=== PATIENT | female | born 1965 | race Caucasian/White ===

== ENCOUNTER 2019-08-04 16:06 | Inpatient (IN) | payer MEDICARE, MEDICAID ==
[~2019-08-04] VITALS: Ht 157.5 cm; Wt 56.7 kg
--- NOTE | 2019-08-04 16:10 | NUR ---
PT [id number] [facility] FOR DIFFUSE ABDOMINAL PAIN, CONSTIPATION X 2 DAYS. PT AAOX4, VSS, NO ACUTE DISTRESS NOPTED. PT CONNECTED TO THE MONITOR AND POX
[2019-08-04] MEDS ORDERED: ACETAMINOPHEN ES 500 MG TABLET ONE (16:47)
[2019-08-04] MEDS ORDERED: predniSONE 20 MG TABLET ONE (16:48)
[2019-08-04] MEDS ORDERED: ALBUTEROL FS 2.5 MG/3 ML VIAL.NEB NEB ONE (17:00)
[2019-08-04] MEDS ORDERED: predniSONE 20 MG TABLET PO ONE (17:00)
[2019-08-04] MEDS ORDERED: IV NS 0.9% 1,000 ML BAG IV ONE (17:00)
[2019-08-04] MEDS ORDERED: IPRATROPIUM NEB FS 0.5 MG/2.5 ML AMPUL.NEB NEB ONE (17:00)
[2019-08-04] MEDS ORDERED: ACETAMINOPHEN ES 500 MG TABLET PO ONE (17:00)
[2019-08-04] MEDS ORDERED: MINERAL OIL 133 ML (PYXIS) 1 EA ENEMA RC ONE ×2 (17:04→17:30)
[2019-08-04 17:06] LABS: BASOPHILS # (AUTO) 0.1 /CMM (0.0-0.2); BASOPHILS % (AUTO) 0.6 % (0.0-2.0); EOSINOPHILS % (AUTO) 2.6 % (0.0-6.0); HEMATOCRIT 30 % (33-45); HEMOGLOBIN 9.6 g/dL (11.5-14.8); LYMPHOCYTES # (AUTO) 1.6 /CMM (0.8-4.8); LYMPHOCYTES % (AUTO) 17.5 % (20.0-44.0); MEAN CORPUSCULAR HGB CONC 32 g/dl (31.0-36.0); MEAN CORPUSCULAR VOLUME 87 fL (82-100); MONOCYTES # (AUTO) 0.6 /CMM (0.1-1.30); MONOCYTES % (AUTO) 6.6 % (2.0-12.0); NEUTROPHILS # (AUTO) 6.5 /CMM (1.8-8.9); NEUTROPHILS % (AUTO) 72.7 % (43.0-81.0); PLATELET COUNT (AUTO) 412 /CMM (150-450); RED BLOOD CELL COUNT(AUTO) 3.43 MIL/uL (4.0-5.2)
[2019-08-04] MEDS ORDERED: ALBU18HF2 IH (17:08)
[2019-08-04] MEDS ORDERED: LEVO125T8 PO (17:08)
[2019-08-04] MEDS ORDERED: BISA10SU11 RC (17:08)
[2019-08-04] MEDS ORDERED: SENN-261 PO (17:08)
[2019-08-04] MEDS ORDERED: MULT-447 PO (17:08)
[2019-08-04] MEDS ORDERED: DOCU-141 PO (17:08)
[2019-08-04] MEDS ORDERED: TRAZ-257 PO (17:08)
[2019-08-04] MEDS ORDERED: ARIP30TA3 PO (17:08)
[2019-08-04] MEDS ORDERED: TRAM50TA2 PO (17:08)
[2019-08-04] MEDS ORDERED: MELA3TAB41 PO (17:08)
[2019-08-04] MEDS ORDERED: IPRATROPIUM NEB FS 0.5 MG/2.5 ML AMPUL.NEB ONE (17:10)
[2019-08-04] MEDS ORDERED: ALBUTEROL FS 2.5 MG/3 ML VIAL.NEB ONE (17:10)
[2019-08-04] MEDS ORDERED: ACET-2605 PO (17:12)
[2019-08-04] MEDS ORDERED: NA P133E RC (17:12)
[2019-08-04] MEDS ORDERED: MAGN400O6 PO (17:12)
[2019-08-04] MEDS ORDERED: ACET-868 PO (17:12)
[2019-08-04] MEDS ORDERED: POLY15DR40 EACHEYE (17:12)
[2019-08-04 17:15] LABS: CALCIUM, SERUM 9.6 mg/dL (8.5-10.1); CREATININE 5.2 mg/dL (0.6-1.3); POTASSIUM 4.8 mmol/L (3.5-5.1)
--- NOTE | 2019-08-04 17:16 | NUR ---
PT REFUSING VITAL SIGNS
[2019-08-04 17:21] LABS: ALBUMIN 3.4 g/dL (3.4-5.0); BILIRUBIN,DIRECT 0.1 mg/dL (0.0-0.2); BILIRUBIN,TOTAL 0.4 mg/dL (0.2-1.0)
[2019-08-04 17:33] LABS: APPEARANCE,URINE Clear (CLEAR); BILIRUBIN,URINE Negative (NEGATIVE); BLOOD, URINE Trace-intact Ery/uL (NEGATIVE); COLOR,URINE Yellow (YELLOW); KETONES,URINE Negative (NEGATIVE); LEUKOCYTE ESTERASE ,URINE Negative (NEGATIVE); NITRITE, URINE Negative (NEGATIVE); PROTEIN,URINE Negative (NEGATIVE); UGLUCOSE Negative (NEGATIVE); UROBILINOGEN,URINE 0.2 EU/dL (0.2)
[2019-08-04 17:51] LABS: BACTERIA,URINE 1+ /HPF (None Seen); MUCUS,URINE Few /LPF (None Seen); RBC,URINE 0-2 /HPF (0-2); SQUAMOUS EPITHELIAL CELL,UR Many /HPF (None Seen); WBC,URINE NONE SEEN /HPF (0-3)
--- NOTE | 2019-08-04 17:56 | NUR ---
ENEMA TO BE DONE AFTER BREATHING TREATMENT PER PT
--- NOTE | 2019-08-04 18:27 | NUR ---
CALLED CLAUDIA ANDERSON [phone] SPOKE WITH [facility] LAST LABS FROM [facility] ON 06-29-19 CREATININE OF 1.05
--- NOTE | 2019-08-04 20:46 | NUR ---
ms 208-2
--- NOTE | 2019-08-04 21:51 | NUR ---
REPORT GIVEN TO SHAYY FRITZ
[2019-08-04] MEDS ORDERED: ONDANSETRON HCL/PF 4 MG/2 ML VIAL IVP PRN (22:00)
[2019-08-04] MEDS ORDERED: MAGNESIUM HYDROXIDE 30 ML UDC PO PRN (22:00)
[2019-08-04] MEDS ORDERED: MAG HYDROX/AL HYDROX/SIMETH 30 ML UDC PO PRN (22:00)
[2019-08-04] MEDS ORDERED: ACETAMINOPHEN 325 MG TABLET PO PRN (22:00)
[2019-08-04] MEDS ORDERED: Z GUARD REMEDY 2 OZ OINT TP PRN (22:00)
--- NOTE | 2019-08-04 22:30 | NUR ---
RN OPENING NOTES RECEIVED REPORT FROM LABORER LIVESTOCK JAMES. Pt ARRIVED TO THE FLOOR VIA GURNEY. NO S/S OF ACUTE DISTRESS OR SEVERE SOB NOTED. Pt IS A/OX3, VERBAL, ABLE TO MAKE NEEDS KNOWN. Pt IS ALERT TO SELF, KNOWS , KNOWS CURRENT YEAR, WAS FORGETFUL AT FIRST OF THE CURRENT MONTH, THOUGHT IT WAS JUNE BUT CORRECTED HERSELF WITHOUT HELP AND SAID IT WAS JULY 2019. Pt KNEW SHE WAS IN A HOSPITAL BUT WAS UNCERTAIN OF THE NAME OF THE HOSPITAL. Pt IS C/O 10/10 PAIN AROUND LEFT NEC & SHOULDER. WILL ADMINISTER PAIN MEDS PER MED ORDER. IV ACCESS ON L HAND #20G. SAFETY MEASURES IN PLACE. BED LOW, LOCKED, HOB ELEVATED, SIDE RAILS UP, CALL LIGHT AND BEDSIDE TABLE WITHIN REACH. Pt IS ON TELE MONITOR, WITH READING OF ST 117. WILL CONTINUE TO MONITOR Pt's CONDITION AND SAFETY THROUGHOUT THE NIGHT.
[2019-08-04] MEDS: HYDROCODONE/APAP 5/325MG 1 EACH TABLET PO PRN (22:58)
[2019-08-04] MEDS ORDERED: POLYVINYL ALCOHOL 15 ML BOTTLE EACHEYE PRN (23:30)
[2019-08-04] MEDS ORDERED: TRAMADOL HCL 50 MG TABLET PO PRN (23:30)
[2019-08-04] MEDS ORDERED: TRAZODONE 50 MG TABLET PO PRN (23:30)
[2019-08-05] VITALS: BP 160/105
[2019-08-05] MEDS: POLYETHYLENE GLYCOL 3350 17 GM POWD.PACK PO SCH ×2 (00:50→21:13)
[2019-08-05] MEDS: SENNOSIDES 8.6 MG TABLET PO SCH ×2 (00:52→21:13)
[2019-08-05] MEDS: LEVOFLOXACIN (250MG) 250 MG TABLET PO SCH ×2 (00:52→22:37)
[2019-08-05] MEDS: DOCUSATE SODIUM 100 MG CAPSULE PO SCH ×4 (00:52→16:29)
[2019-08-05] MEDS: IPRATROPIUM NEB FS 0.5 MG/2.5 ML AMPUL.NEB NEB PRN ×3 (00:53→13:54)
[2019-08-05] MEDS: ALBUTEROL HALF STRENGTH 1.25 MG/3 ML VIAL.NEB NEB PRN ×3 (00:53→13:54)
[2019-08-05] MEDS: SORBITOL SOLUTION 30 ML PO SCH ×2 (00:53→09:22)
[2019-08-05] MEDS: METOPROLOL TARTRATE 25 MG TABLET PO SCH ×3 (00:54→21:13)
[2019-08-05] MEDS: HEPARIN SODIUM, PORCINE 5000 UNITS/1 ML VIAL SQ SCH ×3 (01:05→21:13)
[2019-08-05] MEDS: IV NS 0.9% 1,000 ML IV PRN (01:06)
[2019-08-05] MEDS: ZOLPIDEM TARTRATE 5 MG TABLET PO PRN ×2 (01:22→21:13)
[2019-08-05 04:30] VITALS: BP 163/99
[2019-08-05] MEDS: HYDROCODONE/APAP 5/325MG 1 EACH TABLET PO PRN ×2 (05:06→18:04)
--- NOTE | 2019-08-05 06:45 | NUR ---
RN NOTES Pt REFUSED AM BLOOD DRAWS. SAID TO COME BACK AT 11AM. WILL ENDORSE TO DAYSYAZMIN RN.
--- NOTE | 2019-08-05 07:30 | NUR ---
RN CLOSING NOTES NO SIGNIFICANT CHANGES IN Pt's CONDITION. Pt REMAINED STABLE DURING THE NIGHT PER BASELINE. NO S/S OF ACUTE DISTRESS OR SEVERE SOB NOTED. ALL NEEDS MET AND ATTENDED. SAFETY MEASURES IN PLACE. BED ALARM ON. Pt IS RESTING COMFORTABLY IN BED. TELE READING SR 88. WILL ENDORSE TO DAYSHIFT RN FOR Pt's NUNO.
--- NOTE | 2019-08-05 07:59 | NUR ---
ONLINE COMMUNITY MANAGER OPENING NOTES RECEIVED PATIENT IN BED, AWAKE, A/O X3. PATIENT ON ROOM AIR BREATHING EVENLY WITH NO SIGNS OF SOB OR DISTRESS AT THIS TIME. PATIENT MAKES NEEDS KNOWN. DENIES ANY PAIN AT THIS MOMENT. L HAND SL GAUGE # 20 PRESENT, INTACT AND RUNNING NS @ 75ML/HR. NO SIGNS OF INFILTRATION OR REDNESS AT THE SITE. PATIENT ON EXTERNAL CARDIAC MONITORING WITH A READING OF NORMAL SR IN THE 80S. SAFETY PRECAUTIONS IN PLACE: BED IN LOW POSITION AND LOCKED, RAILS UP X 2, CALL LIGHT WITHIN REACH. WILL CONTINUE TO MONITOR PATIENT.
--- NOTE | 2019-08-05 09:14 | NUR ---
WOUND CARE CONSULT: PT SLEEPING SOUNDLY AT THIS TIME. PER NURSING STAFF, PT WAS UNCOOPERATIVE EARLIER. WILL SEE PT PT CONDITION PERMITS. RN TO DISCUSS SKIN CONDITION WITH MD. DISCUSSED SKIN PROTECTION. CURRENT SHOSHANA SCORE IS 15.
[2019-08-05] MEDS: LEVOTHYROXINE SODIUM 125 MCG TABLET PO SCH (09:17)
[2019-08-05] MEDS: MULTIVITAMINS,THERAGRAN 1 UDTAB TABLET PO SCH (09:18)
[2019-08-05] MEDS: ARIPIPRAZOLE 5 MG TABLET PO SCH (09:22)
--- NOTE | 2019-08-05 10:30 | NUR ---
RN MS NOTES PT SEEN BY DR. RAMOS, ORDERED SKIN SCRAPE TO R/O SCABIES, AWARE THAT PT IS REFUSING AM BLOOD DRAWS AND VITAL SIGNS, ALSO REFUSING IV FLUIDS, MD ALSO ORDERED PSYCH CONSULT, NOTED AND CARRIED OUT.
[2019-08-05 12:40] LABS: CREATININE, URINE 46.1 MG/DL (30.0-125.0)
--- NOTE | 2019-08-05 12:40 | NUR ---
MS RN NOTES PATIENT HAS $100 CHECK IN HER POSSESSION. TOLD SHE DOES NOT WANT TO GIVE IT TO THE SAFE FOR SAFE STORAGE. SHE DOES NOT BELIEVE ANYONE AND WILL KEEP IT WITH HER. SHE WANT TO SPEAK ONLY WITH CASE-COMPENSATION DIRECTOR.
[2019-08-05 12:48] LABS: APPEARANCE,URINE CLEAR (CLEAR); BILIRUBIN,URINE NEGATIVE (NEGATIVE); BLOOD, URINE MODERATE Ery/uL (NEGATIVE); COLOR,URINE YELLOW (YELLOW); KETONES,URINE NEGATIVE (NEGATIVE); LEUKOCYTE ESTERASE ,URINE TRACE (NEGATIVE); NITRITE, URINE NEGATIVE (NEGATIVE); PH,URINE 6.5 (5.0-8.0); PROTEIN,URINE 100 mg/dl (NEGATIVE); UGLUCOSE NEGATIVE (NEGATIVE); UROBILINOGEN,URINE 0.2 EU/dL (0.2)
[2019-08-05 14:18] LABS: RBC,URINE 51-80 /HPF (0-2)
[2019-08-05 14:19] LABS: BACTERIA,URINE 1+ /HPF (None Seen); SQUAMOUS EPITHELIAL CELL,UR Few /HPF (None Seen)
[2019-08-05 14:35] LABS: EOSINOPHIL,URINE None Seen
[2019-08-05] MEDS: DIVALPROEX SODIUM 125 MG CAP.SPRINK PO SCH (16:29)
[2019-08-05 17:45] VITALS: BP 158/99
--- NOTE | 2019-08-05 18:18 | NUR ---
MS RN NOTES PATIENT SCHEDULED FOR SKIN SCRAPING TODAY TO R/O SCABIES. MULTIPLE ATTEMPTS WERE MADE TO FIND A CERTIFIED PERSON TO PERFORM THE PROCEDURE BUT THEY WERE NOT SUCCESSFUL. NO ONE WAS AVAILABLE AND THE PROCEDURE HAS NOT BEEN DONE. CHARGE NURSE AWARE. KING (ID NURSE) NOTIFIED.
--- NOTE | 2019-08-05 18:40 | NUR ---
Spoke with SNF nurse Sera- confirmed patient is a resident of [facility] [phone] at [facility] . Patient requires max assist with adl's. Uses wheelchair for mobility most of the time. Her pcp is Dr. Ami Garcia. Current dc plan is to return to SNF with bed on hold x7 days. Addendum: 08/05/19 at 1841 by TODD VIERA RN Amended: Links added.
--- NOTE | 2019-08-05 18:47 | NUR ---
MS RN CLOSING NOTES PATIENT RESTING IN BED A/O x3. ABLE TO MAKE NEEDS KNOWN. PATIENT ON ROOM AIR, BREATHING EVEN AND UNLABORED WITH NO SIGNS OF DISTRESS. NO SOB PRESENT AT THIS TIME. THROUGHOUT THE DAY PATIENT ANGRY WITH MOOD SWINGS. PATIENT REFUSED CERTAIN MEDICATIONS, LABS AND PROCEDURES SUCH SKIN SCRAPING TO R/O SCABIES. L HAND #20 SL INTACT AND PATENT WITH NO SIGNS OF INFILTRATION. ESTES CATHETER IN PLACE, INTACT AND DRAINING CLEAR, YELLOW URINE. ALL NEEDS WERE ATTENDED TO. SAFETY PRECAUTIONS IN PLACE; BED IN LOW POSITION AND LOCKED, RAILS UP X 2, CALL LIGHT WITHIN REACH. WILL ENDORSE TO COVERING MACHINE OPERATOR HELPER NURSE.
--- NOTE | 2019-08-05 19:05 | NUR ---
MS RN NOTE RECEIVED PT IN STABLE CONDITION A/O X3, CURRENTLY IN ROOM. NO SIGNS OF SOB OR DISTRESS, NO C/O PAIN OR N/V. NOTED TO BE ON ISOLATION PRECAUTIONS, PRECAUTIONS FOLLOWED. ESTES IN PLACE, WITH ADEQUATE URINE DRAINING. L HAND #20, INTACT AND IN PLACE. ALL CURRENT NEEDS ATTENDED TO. BED LOW, LOCKED, UPPER RAILS UP, AND CALL LIGHT WITHIN REACH. WILL CONT. TO MONITOR.
[2019-08-05 20:00] VITALS: BP 148/101
[2019-08-06] MEDS: HYDROCODONE/APAP 5/325MG 1 EACH TABLET PO PRN ×4 (01:45→20:12)
--- NOTE | 2019-08-06 06:15 | NUR ---
MS RN NOTE PT REMAINS IN STABLE CONDITION A/O X3, CURRENTLY IN ROOM RESTING. NO SIGNS OF SOB OR DISTRESS, NO C/O PAIN OR N/V. NOTED TO BE ON ISOLATION PRECAUTIONS, PRECAUTIONS FOLLOWED. ESTES IN PLACE, WITH ADEQUATE URINE DRAINING. L HAND #20, INTACT AND IN PLACE, REFUSING IV HYDRATION. ALL CURRENT NEEDS ATTENDED TO. BED LOW, LOCKED, UPPER RAILS UP, AND CALL LIGHT WITHIN REACH. WILL CONT. TO MONITOR AND ENDORSE TO NEXT SHIFT FOR NUNO.
--- NOTE | 2019-08-06 07:20 | NUR ---
MS RN NOTE PT REFUSED AM LABS TO BE DRAWN, RISKS AND BENEFITS MADE AWARE, WITH VERBALIZATION OF UNDERSTANDING.
[2019-08-06 08:00] VITALS: BP_SYST 157; BP_SYST 159; BP_DIAS 108; BP_DIAS 92
[2019-08-06] MEDS: SORBITOL SOLUTION 30 ML PO SCH (09:00)
[2019-08-06] MEDS ORDERED: PERMETHRIN 5% CRM 60 GM TUBE TP ONE (09:00)
[2019-08-06] MEDS: LEVOTHYROXINE SODIUM 125 MCG TABLET PO SCH (09:05)
[2019-08-06] MEDS: DIVALPROEX SODIUM 125 MG CAP.SPRINK PO SCH ×3 (09:05→16:02)
[2019-08-06] MEDS: DOCUSATE SODIUM 100 MG CAPSULE PO SCH ×3 (09:05→16:03)
[2019-08-06] MEDS: ARIPIPRAZOLE 5 MG TABLET PO SCH (09:05)
[2019-08-06] MEDS: METOPROLOL TARTRATE 25 MG TABLET PO SCH ×2 (09:06→20:15)
[2019-08-06] MEDS: HEPARIN SODIUM, PORCINE 5000 UNITS/1 ML VIAL SQ SCH ×2 (09:08→21:32)
[2019-08-06] MEDS: MULTIVITAMINS,THERAGRAN 1 UDTAB TABLET PO SCH (09:09)
[2019-08-06] MEDS: IPRATROPIUM NEB FS 0.5 MG/2.5 ML AMPUL.NEB NEB PRN (09:50)
[2019-08-06] MEDS: ALBUTEROL HALF STRENGTH 1.25 MG/3 ML VIAL.NEB NEB PRN (09:50)
[2019-08-06] MEDS ORDERED: GUAIFENESIN 300 MG/15 ML UDC PO PRN (11:00)
--- NOTE | 2019-08-06 11:00 | NUR ---
MS RN NOTES-- RECEIVED ORDERS PER DR. BOSS FOR PERMETHRIN. PER DR. RAMOS, TO APPLY PERMETHRIN AFTER SKIN SCRAPE. CHARGE NURSE MADE AWARE.
[2019-08-06 12:02] LABS: BASOPHILS # (AUTO) 0.1 /CMM (0.0-0.2); BASOPHILS % (AUTO) 0.8 % (0.0-2.0); EOSINOPHILS % (AUTO) 2.5 % (0.0-6.0); HEMATOCRIT 28 % (33-45); HEMOGLOBIN 9.4 g/dL (11.5-14.8); LYMPHOCYTES # (AUTO) 2.4 /CMM (0.8-4.8); LYMPHOCYTES % (AUTO) 22.9 % (20.0-44.0); MEAN CORPUSCULAR HGB CONC 33 g/dl (31.0-36.0); MEAN CORPUSCULAR VOLUME 87 fL (82-100); MONOCYTES # (AUTO) 0.7 /CMM (0.1-1.30); MONOCYTES % (AUTO) 7.1 % (2.0-12.0); NEUTROPHILS # (AUTO) 6.9 /CMM (1.8-8.9); NEUTROPHILS % (AUTO) 66.7 % (43.0-81.0); PLATELET COUNT (AUTO) 403 /CMM (150-450); RED BLOOD CELL COUNT(AUTO) 3.24 MIL/uL (4.0-5.2); WHITE BLOOD COUNT (AUTO) 10.3 K/uL (4.3-11.0)
[2019-08-06 12:19] LABS: BILIRUBIN,TOTAL 0.2 mg/dL (0.2-1.0); CALCIUM, SERUM 9.5 mg/dL (8.5-10.1); CREATININE 2.2 mg/dL (0.6-1.3); MAGNESIUM 1.6 mg/dL (1.8-2.4); POTASSIUM 4.3 mmol/L (3.5-5.1); TOTAL PROTEIN, SERUM 6.8 g/dL (6.4-8.2)
[2019-08-06 16:00] VITALS: BP 162/98
--- NOTE | 2019-08-06 18:33 | NUR ---
MS RN END OF SHIFT REPORT PT IS A/OX4, AFEBRILE. RESPIRATIONS ARE EVEN AND UNLABORED, NOT IN ANY ACUTE DISTRESS NOTED. PT DENIES ANY PAIN, NO C/O SOB, N/V. +BOWEL SOUNDS, +FLATUS. ESTES CATH IN PLACE AND VOIDING. SKIN NOTED WITH SCATTERED RASHES THROUGHOUT BODY, APPLIED PERMETRHIN ORDERED. ON CONTACT ISOLATION TO R/O SCABIES. ISOLATION PRECAUTIONS TAKEN. SAFETY MEASURES ARE IN PLACE. ALL NEEDS MET AND RENDERED. CONTINUE W/ POC. WILL ENDORSE TO NEXT SHIFT FOR CONTINUITY OF CARE.
--- NOTE | 2019-08-06 19:44 | NUR ---
RN NOTES RECEIVED PATIENT AWAKE ALERT IRRITABLE, YELLING AND SCREAMING, ALL NEEDS ATTENDED, PRN DUE MEDICATIONS GIVEN, SAFETY MEASURES INPLACED, ASPIRATION PRECAUTION EMPHASIZED, IV ACCESS INTACT AND PATENT. ESTES CATHETER INTACT AND PATENT DRAINING TO A CLEAR YELLOW URINE OUTPUT. CALL LIGHT WITHIN EASY REACH, WILL MONITOR ACCORDINGLY.
[2019-08-06 20:00] VITALS: BP 183/104
[2019-08-06] MEDS: POLYETHYLENE GLYCOL 3350 17 GM POWD.PACK PO SCH (21:32)
[2019-08-06] MEDS: ZOLPIDEM TARTRATE 5 MG TABLET PO PRN (21:32)
[2019-08-06] MEDS: SENNOSIDES 8.6 MG TABLET PO SCH (21:32)
[2019-08-06] MEDS: LEVOFLOXACIN (250MG) 250 MG TABLET PO SCH (23:55)
[2019-08-07] MEDS: IV NS 0.9% 1,000 ML IV PRN (05:36)
[2019-08-07] MEDS: HYDROCODONE/APAP 5/325MG 1 EACH TABLET PO PRN ×3 (05:38→17:47)
--- NOTE | 2019-08-07 06:12 | NUR ---
RN NOTES ALL NEEDS ATTENDED AND MET. BATHE PATIENT COMPLETELY WITH BOWL SANDER, SAFETY MEASURES INPLACED, CONTACT ISOLATION PRECAUTION EMPHASIZED, PRN MEDICATIONS GIVEN PER PATIENT REQUEST, PATIENT IS CALM AT THIS TIME WITH EPISODES OF NON FOLLOWING NURSING CARE AND MANAGEMENT. NORCO GIVEN AT 0538, KEEP CLEAN DRY AND COMFORTABLE, CALL LIGHT WITHIN EASY REACH. WILL ENDORSE TO AM NURSE FOR CONTINUITY OF CARE.
--- NOTE | 2019-08-07 08:00 | NUR ---
Patient refused to take VS am
[2019-08-07] MEDS: HEPARIN SODIUM, PORCINE 5000 UNITS/1 ML VIAL SQ SCH (09:00)
[2019-08-07] MEDS: METOPROLOL TARTRATE 25 MG TABLET PO SCH (09:00)
--- NOTE | 2019-08-07 09:15 | NUR ---
Patient refused Lovenox, risks and benefits explained. Patient still refusing
[2019-08-07] MEDS: ARIPIPRAZOLE 5 MG TABLET PO SCH (10:54)
[2019-08-07] MEDS: DIVALPROEX SODIUM 125 MG CAP.SPRINK PO SCH ×3 (10:54→17:47)
[2019-08-07] MEDS: LEVOTHYROXINE SODIUM 125 MCG TABLET PO SCH (10:54)
[2019-08-07] MEDS: DOCUSATE SODIUM 100 MG CAPSULE PO SCH ×3 (10:54→17:00)
[2019-08-07] MEDS: MULTIVITAMINS,THERAGRAN 1 UDTAB TABLET PO SCH (10:54)
[2019-08-07] MEDS: SORBITOL SOLUTION 30 ML PO SCH (11:04)
--- NOTE | 2019-08-07 11:40 | NUR ---
James catheter removed per .
[2019-08-07] MEDS ORDERED: METO25TA20 PO (12:07)
[2019-08-07] MEDS ORDERED: DIVA125C2 PO (12:07)
--- NOTE | 2019-08-07 13:00 | NUR ---
Patient refused to be d/c to [facility]. Case management informed
--- NOTE | 2019-08-07 19:20 | NUR ---
PATIENT RESTING IN BED, VS ARE STABLE AND WITHIN BASELINE. IV LINE FLUSHING WELL, PATIENT REFUSED. PATIENT REFUSED D/C PICTURES. PATIENT CLEARED FOR D/C TO [facility]. WILL ENDORSE TO NEXT SHIFT FOR NUNO.
--- NOTE | 2019-08-07 19:50 | NUR ---
RN NOTES RECEIVED PATIENT AWAKE, BREATHING TREATMENT ONGOING, DENIES ANY PAIN OR DISCOMFORT, SAFETY MEASURES INPLACE, IV ACCESS INTACT AND PATENT BED IN LOW LOCKED POSITION CALL LIGHT WITHIN EASY REACH, KEEP COMFORTABLE, PATIENT WILL BE DISCHARGE TONIGHT. WILL MONITOR ACCORDINGLY.
[2019-08-07 20:57] VITALS: BP 149/87
--- NOTE | 2019-08-07 21:45 | NUR ---
LEAD PONY RIDER NOTES CALLED AND SPOKE TO CATRINA MCCAIN OF [facility] ), REPORT GIVEN, NO FURTHER QUESTIONS MADE. ALL NEEDS ATTENDED, PATIENT REFUSED SKIN ASSESSMENT AND TO TAKE PHOTOS OF SKIN CONDITION, IV ACCESS REMOVED, PATIENT UNABLE TO SIGN DISCHARGE PAPER AT THIS TIME DUE TO EPISODES OF CONFUSION, DISCHARGE PAPER SIGNED BY CO-RN ROSA. ALL BELONGINGS ACCOUNTED FOR. PATIENT LEFT THE UNIT MEDICALLY STABLE. CHARGE NURSE AWARE OF DISCHARGE.
[2019-08-09 08:06] LABS: *SPE A/G RATIO 0.9 (0.7-1.7); *SPE ALBUMIN 2.9 g/dL (2.9-4.4); *SPE ALPHA-1-GLOBULIN 0.1 g/dL (0.0-0.4); *SPE ALPHA-2-GLOBULIN 0.6 g/dL (0.4-1.0); *SPE BETA GLOBULIN 0.9 g/dL (0.7-1.3); *SPE GLOBULIN, TOTAL 3.4 g/dL (2.2-3.9); *SPE M-SPIKE Not Observed g/dL (Not Observed); *SPEGAMMA GLOBULIN 1.8 g/dL (0.4-1.8)
[2019-08-09 12:06] LABS: PTH, INTACT 19 pg/mL (15-65)
== END 2019-08-07 21:45 | DRG 304 ==
LOC: ER 16:07 → MED 21:48 → TELE 22:22 → MED 08-05 08:55 → UNDODISIN 08-07 21:45
PROVIDERS: ADMIT Nurse Practitioner Acute Care; ATTEND Student in an Organized Health Care Education/Training Program
DX: I16.9 Hypertensive crisis, unspecified (principal); N17.0 Acute kidney failure with tubular necrosis; D68.69 Other thrombophilia; N13.6 Pyonephrosis; I12.9 Hypertensive chronic kidney disease with stage 1 through stage 4 chronic kidney disease, or unspecified chronic kidney disease; D63.8 Anemia in other chronic diseases classified elsewhere; N31.9 Neuromuscular dysfunction of bladder, unspecified; N18.9 Chronic kidney disease, unspecified; B86 Scabies; E03.9 Hypothyroidism, unspecified; Z87.891 Personal history of nicotine dependence; Z87.440 Personal history of urinary (tract) infections; Z87.01 Personal history of pneumonia (recurrent); J44.9 Chronic obstructive pulmonary disease, unspecified; Z99.3 Dependence on wheelchair; K59.09 Other constipation; Z91.14 Patient's other noncompliance with medication regimen
CPT/HCPCS: 36415; 71045-TC; 80048-TC; 80053-TC; 80076-TC; 81000-TC; 82550-TC; 82570-TC; 83690-TC; 83735-TC; 83970; 84100-TC; 84155; 84155-TC; 84165; 84300-TC; 85025-TC; 87081-TC; 87086-TC; G0378; J1644; J7030